=== PATIENT | male | born 1955 | race Caucasian/White ===

== ENCOUNTER 2021-10-06 06:25 | Day surgery (SDC) | payer OTHER, SELFPAY ==
[2021-09-25 13:32] VITALS: BMI 31.1
--- NOTE | 2021-10-02 12:25 | MHC.SHP ---
Pre-Procedural Eval Section A Date of Service: 10/02/21 The patient is an INPATIENT: No Changes since office visit: No Cold of Flu in the past 2 weeks, No New Medical Problems, No Changes in Medication and No Patient answered all questions The History & Physical has been completed within 30 days and I have reviewed it.: Yes Section B Chief Complaint: cataract left eye Allergies: Allergies Allergy/AdvReac Type Severity Reaction Status Date / Time penicillin G [Penicillin G] Allergy Mild ITCH/SOB Unverified 09/25/21 13:26 Plan Diagnosis/Plan: Unchanged I have reviewed the history and physical and performed a pertinent physical examination on my patient. No changes have occurred unless specified.
--- NOTE | 2021-10-02 13:35 | HO.ANESPROP2 ---
Documented by User: Vivian Del Cid NP 10/02/21 13:35 HPI - Anesthesia Eval Consult details Narrative: 66yo M for Left Cataract Extraction IOL Insertion PCP cleared No previous cataract on record [facility] Past Medical History Medical History GERD (gastroesophageal reflux disease) HTN (hypertension) Hyperlipidemia Smoker Surgical History Surgical History (Updated 09/25/21 @ 13:26 by Natalia Walsh RN) Hx of colonoscopy S/P surgical removal of pilonidal cyst [place] teeth extracted Social History Social History Are you a primary care advocate to a significant other at home: No Do you presently have visiting nurse or other home services: No Patient Tobacco Use Status: Current everyday Tobacco user Tobacco use type: Cigarette Cigarette Packs Per Day: 1 Cigarettes Per Day: 20.0 Years Smoked: 35 Smoked in Last 30 Days: Yes Patient Interested in Nicotine Replacement: No Have you been hit, kicked, punched, or otherwise hurt by someone within the past year? If so, by whom?: No Are you DNR?: No Advance Directives: No Advance Directives Information Provided: Yes Advance Directives on File: No Recently lost weight without trying: No Eating poorly because of decreased appetite: No Nutrition Risks: No Nutritional Risk Meds Allergies Allergy/AdvReac Type Severity Reaction Status Date / Time penicillin G [Penicillin G] Allergy Mild ITCH/SOB Verified 10/06/21 06:33 Home Medications Medication Instructions Recorded Confirmed Last Taken Type amlodipine 10 mg tablet 1 tab PO DAILY 09/25/21 09/25/21 Unknown History aspirin 81 mg tablet,delayed 81 mg PO DAILY 09/25/21 09/25/21 Unknown History release atorvastatin 20 mg tablet 1 tab PO DAILY 09/25/21 09/25/21 Unknown History hydrochlorothiazide 25 mg tablet 1 tab PO DAILY 09/25/21 09/25/21 Unknown History nicotine 14 mg/24 hr daily 1 patch TOPICAL DAILY 10/06/21 10/06/21 10/05/21 12:00 History transdermal patch Right Shoulder Exam Exam Date and Time: October 02, 2021 1335 Height,Weight and Vital Signs: Height 5 ft 9 in Weight 95.708 kg Assessment and Plan Assessment Anesthesia Assessment: Chart Reviewed Documented by User: Dionne Cordero MD 10/06/21 07:08 [facility] Past Medical History Medical History GERD (gastroesophageal reflux disease) HTN (hypertension) Hyperlipidemia Smoker Family History Family history of problems with anesthesia: No Surgical History Surgical History (Updated 09/25/21 @ 13:26 by Natalia Walsh RN) Hx of colonoscopy S/P surgical removal of pilonidal cyst [place] teeth extracted History of Problems with Anesthesia: No Social History Social History Are you a primary care advocate to a significant other at home: No Do you presently have visiting nurse or other home services: No Patient Tobacco Use Status: Current everyday Tobacco user Tobacco use type: Cigarette Cigarette Packs Per Day: 1 Cigarettes Per Day: 20.0 Years Smoked: 35 Smoked in Last 30 Days: Yes Patient Interested in Nicotine Replacement: No Have you been hit, kicked, punched, or otherwise hurt by someone within the past year? If so, by whom?: No Are you DNR?: No Advance Directives: No Advance Directives Information Provided: Yes Advance Directives on File: No Recently lost weight without trying: No Eating poorly because of decreased appetite: No Nutrition Risks: No Nutritional Risk Meds Allergies Allergy/AdvReac Type Severity Reaction Status Date / Time penicillin G [Penicillin G] Allergy Mild ITCH/SOB Verified 10/06/21 06:33 Home Medications Medication Instructions Recorded Confirmed Last Taken Type amlodipine 10 mg tablet 1 tab PO DAILY 09/25/21 09/25/21 Unknown History aspirin 81 mg tablet,delayed 81 mg PO DAILY 09/25/21 09/25/21 Unknown History release atorvastatin 20 mg tablet 1 tab PO DAILY 09/25/21 09/25/21 Unknown History hydrochlorothiazide 25 mg tablet 1 tab PO DAILY 09/25/21 09/25/21 Unknown History nicotine 14 mg/24 hr daily 1 patch TOPICAL DAILY 10/06/21 10/06/21 10/05/21 12:00 History transdermal patch Right Shoulder Exam Airway Mallampati Class: II TM Dist: >3cm Neck ROM: Full Heart: rrr Lungs: cta Assessment and Plan Assessment Anesthesia Assessment: Anesthesia Plan Discussed and Chart Reviewed Final Anesthetic Review Family History of Problems with Anesthesia: No History of Problems with Anesthesia: No NPO: Yes ASA Class: II Final Preanesthetic Review: No Changes in Pt Med Stat, Meds/Allgs Chart Reviewed and Consent Obtained/Reviewed Patient Risk: Intermediate Procedure Risk: Intermediate Anesthetic Plan Anesthetic Plan: MAC: Disposition: Standard PACU
[2021-10-06 06:36] VITALS: BP 132/82; PULSE 78; RESP 16; TEMP 36.9; O2SAT 98
[2021-10-06] MEDS: Tetracaine HCl/PF 0.5% Oph Sol 4 ML DROPS 1 DROP EYE-LEFT (06:49)
[2021-10-06] MEDS: Lactated Ringers 500 ML 50 ML IV (06:49)
[2021-10-06] MEDS: Tropicamide 1 % Ophth Sol 3 ML BTL 1 DROP EYE-LEFT ×3 (06:50→07:02)
[2021-10-06] MEDS: Phenylephrine HCL 2.5% Oph SoL 2 ML BOTTLE 1 DROP EYE-LEFT ×3 (06:54→07:06)
--- NOTE | 2021-10-06 07:55 | P.PCNO_ITS ---
Ophthalmology Procedure Procedure Date of Service: 10/06/21 Ophthalmology Viscoelastic: Healbob Duet Dual Pack Pro Ophthalmology Lenses: TECRANDELL [id number] (19) Procedure Notes: PREOPERATIVE DIAGNOSIS: Decreased visual acuity left eye secondary to cataract POSTOPERATIVE DIAGNOSIS: Same PROCEDURE: Left cataract extraction with intraocular lens insertion SURGEON: Edin Savage M.D. ANESTHESIA: Topical/MAC ESTIMATED BLOOD LOSS: None COMPLICATIONS: Vitreal Strand After obtaining informed consent, the patient was brought to the operation room suite and placed in the supine position. After adequate sedation per anesthesia, topical drops of Tetracaine were given to the left eye. The eye was then prepped and draped in the usual sterile fashion. The operating room microscope was then positioned over the operative eye and a lid speculum placed. A paracentesis was created. Viscoelastic was then instilled into the anterior chamber. A three plane incision was then created temporally, utilizing a 2.85 mm keratome. Capsulotomy forceps were then utilized to create a circular tear capsulotomy. Hydrodissection and hydrodelineation were carried out until adequate mobilization of the nucleus occurred. Phacoemulsification was then utilized to remove the dense central nucleus followed by removal of the cortical material utilizing the automated aspiration irrigation unit. A vitreal strand was noted coming throurg the Zonules which required an Anterior Vitrectomy. Viscoat elastic was instilled into the posterior capsular bag followed by placement of a posterior chamber intraocular lens without difficulty. The residual Viscoat elastic was then removed utilizing the autom ated IA machine. The wound was check and found to be watertight. The patient tolerated the procedure well and the lid speculum was removed. Intracameral injection of Vigamox 0.1 mL followed by a subtenon injection of Kenalog-40 0.2 mL were administered. The patient will be seen in the a.m.
[2021-10-06 08:28] VITALS: BP 149/90; PULSE 78; RESP 16; TEMP 36.7; O2SAT 97
== END 2021-10-06 08:40 | disposition home or self-care (01) ==
PROVIDERS: PCP Physician Assistant Medical; Visit Provider Ophthalmology
PROC: (CPT 66985; principal; 2021-10-06 07:50)
DX: H25.12 Age-related nuclear cataract, left eye (principal); H43.312 Vitreous membranes and strands, left eye; H54.7 Unspecified visual loss; Z83.511 Family history of glaucoma; H11.133 Conjunctival pigmentations, bilateral; H43.399 Other vitreous opacities, unspecified eye; I10 Essential (primary) hypertension; E78.00 Pure hypercholesterolemia, unspecified; F17.210 Nicotine dependence, cigarettes, uncomplicated; Z88.0 Allergy status to penicillin; Z79.82 Long term (current) use of aspirin; Z79.899 Other long term (current) drug therapy
CPT/HCPCS: 66984; 67005; J2250; J3010; J3300; V2632

== ENCOUNTER 2024-04-24 07:39 | Day surgery (SDC) | payer OTHER, SELFPAY ==
[2024-04-19 09:52] VITALS: BMI 31.2
[2024-04-19 10:41] VITALS: BMI 31.3
--- NOTE | 2024-04-20 13:48 | HO.ANESPROP2 ---
Documented by User: Vivian Del Cid NP 04/20/24 13:49 HPI - Anesthesia Eval Consult details Narrative: 68yo M for Right Cataract Extraction IOL Insertion Left eye 2021: Fent 50, Midaz 2 PMFSH Past Medical History Medical History PAC (premature atrial contraction) Palpitations Smoker Hyperlipidemia HTN (hypertension) GERD (gastroesophageal reflux disease) Family History Family history of problems with anesthesia: No Surgical History Surgical History Hx of left cataract extraction S/P surgical removal of pilonidal cyst [place] teeth extracted Hx of colonoscopy History of Problems with Anesthesia: No Social History Social History Are you a primary customer care consultant to a significant other at home: No Do you presently have visiting nurse or other home services: No Patient Tobacco Use Status: Former Tobacco user Tobacco use type: Cigarette Cigarette Packs Per Day: 1 Cigarettes Per Day: 20.0 Years Smoked: 37 Advance Directives Information Provided: Yes Advance Directives on File: No Meds Allergies Allergy/AdvReac Type Severity Reaction Status Date / Time penicillin G [Penicillin G] Allergy Mild ITCH/SOB Verified 04/24/24 09:40 Home Medications ?Medication ?Instructions ?Recorded ?Confirmed ?Last Taken ?Type amlodipine 10 mg tablet 1 tab PO DAILY 09/25/21 04/19/24 Unknown History aspirin 81 mg tablet,delayed 81 mg PO DAILY 09/25/21 04/19/24 Unknown History release atorvastatin 20 mg tablet 1 tab PO DAILY 09/25/21 04/19/24 Unknown History hydrochlorothiazide 25 mg tablet 1 tab PO DAILY 09/25/21 04/19/24 Unknown History cholecalciferol (vitamin D3) 25 25 mcg PO DAILY 04/19/24 04/19/24 Unknown History mcg (1,000 unit) capsule (Vitamin D3) Exam Height,Weight and Vital Signs: Height 5 ft 9 in Weight 96 kg Assessment and Plan Assessment Anesthesia Assessment: Chart Reviewed Final Anesthetic Review Family History of Problems with Anesthesia: No History of Problems with Anesthesia: No Documented by User: Itzel Benito MD 04/24/24 10:06 [facility] Past Medical History Medical History PAC (premature atrial contraction) Palpitations Smoker Hyperlipidemia HTN (hypertension) GERD (gastroesophageal reflux disease) Surgical History Surgical History Hx of left cataract extraction S/P surgical removal of pilonidal cyst [place] teeth extracted Hx of colonoscopy Social History Social History Are you a primary customer care consultant to a significant other at home: No Do you presently have visiting nurse or other home services: No Patient Tobacco Use Status: Former Tobacco user Tobacco use type: Cigarette Cigarette Packs Per Day: 1 Cigarettes Per Day: 20.0 Years Smoked: 37 Advance Directives Information Provided: Yes Advance Directives on File: No Meds Allergies Allergy/AdvReac Type Severity Reaction Status Date / Time penicillin G [Penicillin G] Allergy Mild ITCH/SOB Verified 04/24/24 09:40 Home Medications ?Medication ?Instructions ?Recorded ?Confirmed ?Last Taken ?Type amlodipine 10 mg tablet 1 tab PO DAILY 09/25/21 04/19/24 Unknown History aspirin 81 mg tablet,delayed 81 mg PO DAILY 09/25/21 04/19/24 Unknown History release atorvastatin 20 mg tablet 1 tab PO DAILY 09/25/21 04/19/24 Unknown History hydrochlorothiazide 25 mg tablet 1 tab PO DAILY 09/25/21 04/19/24 Unknown History cholecalciferol (vitamin D3) 25 25 mcg PO DAILY 04/19/24 04/19/24 Unknown History mcg (1,000 unit) capsule (Vitamin D3) Exam Airway Mallampati Class: III TM Dist: >3cm Neck ROM: Full Loose/Missing/Broken Teeth: No Heart: RRR Lungs: CTA Assessment and Plan Assessment Anesthesia Assessment: Anesthesia Plan Discussed Final Anesthetic Review NPO: Yes ASA Class: II Final Preanesthetic Review: Meds/Allgs Chart Reviewed, Consent Obtained/Reviewed and Anes Risks/Benef Reviewed Patient Risk: Low Procedure Risk: Low Anesthetic Plan Anesthetic Plan: MAC: Disposition: Standard PACU
[2024-04-24] MEDS: Tetracaine HCl/PF 0.5% Oph Sol 4 ML DROPS 1 DROP EYE-RIGHT (09:42)
[2024-04-24] MEDS: Cyclopentolate 1 % Ophth Sol 2 ML DRPBTL 1 DROP EYE-RIGHT ×3 (09:44→10:02)
[2024-04-24] MEDS: Ketorolac Tromethamine 0.5% Op 10 ML DROPS 1 DROP EYE-RIGHT ×3 (09:46→10:06)
[2024-04-24] MEDS: Phenylephrine HCL 2.5% Oph SoL 2 ML BOTTLE 1 DROP EYE-RIGHT ×3 (09:48→10:08)
[2024-04-24] MEDS: Tropicamide 1 % Ophth Sol 3 ML BTL 1 DROP EYE-RIGHT ×3 (09:50→10:04)
[2024-04-24] MEDS: Lactated Ringers 500 ML 50 ML IV (10:10)
[2024-04-24 10:12] VITALS: BP 147/81; PULSE 68; RESP 16; TEMP 36.3; O2SAT 98
[2024-04-24 10:15] VITALS: BMI 31.2
--- NOTE | 2024-04-24 10:55 | P.PCNO_ITS ---
Ophthalmology Procedure Procedure Date of Service: 04/24/24 Ophthalmology Viscoelastic: Healon Duet Dual Pack Pro Ophthalmology Lenses: IOL Acrysof MP - [id number] (19) Procedure Notes: PREOPERATIVE DIAGNOSIS: Decreased visual acuity right eye secondary to cataract POSTOPERATIVE DIAGNOSIS: Same PROCEDURE: Right cataract extraction with intraocular lens insertion SURGEON: Edin Savage M.D. ANESTHESIA: Topical/MAC ESTIMATED BLOOD LOSS: None COMPLICATIONS: None After obtaining informed consent, the patient was brought to the operating room suite and placed in the supine position. After adequate sedation per anesthesia, topical drops of Tetracaine were given to the right eye. The eye was then prepped and draped in the usual sterile fashion. The operating room microscope was then positioned over the operative eye and a lid speculum placed. A paracentesis was created. Viscoelastic was then instilled into the anterior chamber. A three plane incision was then created temporally, utilizing a 2.85 mm keratome. Capsulotomy forceps were then utilized to create a circular tear capsulotomy. Hydrodissection and hydrodelineation were carried out until adequate mobilization of the nucleus occurred. Phacoemulsification was then utilized to remove the dense central nucl eus followed by removal of the cortical material utilizing the automated aspiration irrigation unit. Viscoelastic was instilled into the posterior capsular bag followed by placement of a posterior chamber intraocular lens without difficulty. The residual Viscoelastic was then removed utilizing the automated IA machine. The wound was checked and found to be watertight. The patient tolerated the procedure well and the lid speculum was removed. Intracameral injection of Vigamox 0.1 mL followed by a subtenon injection of Kenalog-40 0.2 mL were administered. The patient will be seen in the a.m.
--- NOTE | 2024-04-24 10:55 | MHC.SHP ---
Pre-Procedural Eval Section A - 24 Hr Update-Section A only Date of Service: 04/24/24 The patient is an INPATIENT: No Changes since office visit: No Cold of Flu in the past 2 weeks, No New Medical Problems, No Changes in Medication and No Patient answered all questions The patient has been examined within 24 hours of the surgical procedure. The History & Physical has been completed within 30 days and I have reviewed it.: Yes Section B - Complete if H&P > 30 days Chief Complaint: Age-related nuclear cataract, right eye Allergies: Allergies Allergy/AdvReac Type Severity Reaction Status Date / Time penicillin G [Penicillin G] Allergy Mild ITCH/SOB Verified 04/24/24 09:40 Plan Diagnosis/Plan: Unchanged I have reviewed the history and physical and performed a pertinent physical examination on my patient. No changes have occurred unless specified. Time Spent With Patient Time: Total time managing care of this patient today ____ minutes.
[2024-04-24 11:26] VITALS: BP 144/91; PULSE 84; RESP 16; TEMP 36.1; O2SAT 97
== END 2024-04-24 11:44 | disposition home or self-care (01) ==
PROVIDERS: PCP Internal Medicine; Visit Provider Ophthalmology
PROC: (CPT 66985; principal; 2024-04-24 09:40)
DX: H25.11 Age-related nuclear cataract, right eye (principal); H54.7 Unspecified visual loss; Z83.511 Family history of glaucoma; Z96.1 Presence of intraocular lens; H18.413 Arcus senilis, bilateral; H11.153 Pinguecula, bilateral; H11.133 Conjunctival pigmentations, bilateral; H43.393 Other vitreous opacities, bilateral; I10 Essential (primary) hypertension; E78.00 Pure hypercholesterolemia, unspecified; K21.9 Gastro-esophageal reflux disease without esophagitis; Z79.82 Long term (current) use of aspirin; Z79.899 Other long term (current) drug therapy; Z88.0 Allergy status to penicillin; F17.210 Nicotine dependence, cigarettes, uncomplicated
CPT/HCPCS: 66984; J2250; J3010; J3301; V2630

== ENCOUNTER 2025-05-25 08:55 | Day surgery (SDC) | payer OTHER, SELFPAY ==
--- OUTSIDE RECORDS SUMMARY | 2025-04-12 12:25 | XMS_ITS | Clinical Summary ---
Author Organization [facility] [address] [facility] Address [address] [place] [address] Phone Care Team Providers Care Information Services Vice President Name Role Phone Abigail Lebron MD Primary Care Provider [phone] Allergies Active Allergy Reactions Criticality Noted Date Comments Penicillin G Potassium 06/24/2005 Medications aspirin 81 mg EC tablet Take 1 tablet (81 mg total) by mouth 1 (one) time each day. Active cholecalciferol (VITAMIN D-3) 25 mcg (1,000 unit) tablet Take 1 tablet (1,000 Units total) by mouth 1 (one) time each day. Active DIPHENHYDRAMINE HCL PO Take 1 tablet by mouth if needed. Active hydroCHLOROthia zide (HYDRODIURIL) 25 mg tablet TAKE ONE TABLET BY MOUTH EVERY DAY 90 tablet 1 5 Active amLODIPine (NORVASC) 10 mg tablet Take 1 tablet (10 mg total) by mouth 1 (one) time each day. 30 tablet 5 5 Active atorvastatin (LIPITOR) 20 mg tablet TAKE ONE TABLET BY MOUTH EVERY DAY 90 tablet 1 5 Active atorvastatin (LIPITOR) 20 mg tablet Take 1 tablet (20 mg total) by mouth 1 (one) time each day. 30 tablet 2 5 03/20/20 25 Discontinued Active Problems Problem Noted Date Diagnosed Date Premature atrial contractions 01/06/2023 Run of ventricular premature complexes 3 Palpitation 12/31/2022 Hyperkalemia 05/25/2018 Overweight 05/03/2012 Tobacco use disorder 09/30/2005 Mixed hyperlipidemia 06/30/2005 Essential hypertension, benign 05/29/2005 Encounters Date Type Department Care Team Description 03/02/2025 11:12 AM EDT - 03/02/2025 11:59 PM EDT Hospital Encounter [facility] CT Scan [address] [place] [address] Encounter for screening for lung cancer; Cigarette smoker Discharge Disposition: Home or Self Care 02/15/2025 Telephone Lung Screening Program - [place] [address] [facility] [address] [place] [address] Mary Madsen MA from Last 3 Months Immunizations Name Administration Dates Next Due Influenza Quadravalent, MDCK , 0.5ml, preservative free (Flucelvax) 6mo and older 07/17/2021,06/22/2019,05/25/2017 Influenza Quadravalent, MDCK , 0.5ml, with preservative (Flucelvax) 6mo and older 04/25/2018 Influenza trivalent, 0.5mL ( Fluad) 65yo and older 04/18/2024,04/28/2023,08/16/2022 Influenza trivalent, 0.5mL, preservative free (Fluarix; FluLaval; Fluzone) ages 6mo and older (Afluria) 3 years and older 05/02/2020 Influenza trivalent, with pr eservative (Fluzone; Afluria) 6mo and older 05/17/2013,07/14/2012 Influenza, Unspecified 06/21/2019,06/12/2015 Td Tetanus diptheria (Tdvax) 7yo and older 06/30 Tdap Tetanus diptheria acell ular pertussis (Boostrix; Adacel) 7yo and older 11/28/2012 Surgical History Surgery Date Site/Laterality Comments CYST REMOVAL PROCEDURE: IA EXCISION PILONIDAL CYST/SINUS SIMPLE WISDOM TOOTH EXTRACTION PROCEDURE: HISTORICAL WISDOM TEETH EXTRACTION OTHER SURGICAL HISTORY PROCEDURE: ---- OTHER ----; COMMENT: rectal polyp removal COLONOSCOPY PROCEDURE: HISTORICAL COLONOSCOPY; COMMENT: 2013 dr campbell F/U due 2018 COLONOSCOPY 2018 PROCEDURE: HISTORICAL COLONOSCOPY; COMMENT: dr campbell next due 2023 Medical History Medical History Date Comments Mixed hyperlipidemia DX:Mixed hy perlipidemia Essential hypertension, benign 05/29/05 D X:Essential hypertension, benign Colon polyp 08/12/2010 DX:Colon polyp; COMMENT: next [id number] Family history of colon canc er in father 05/10/2019 DX:Family history of colon c ancer in father GERD (gastroesophageal reflux disease) 08/27/2008 DX:GERD (gastroesophageal reflux disease) Family History Medical History Relation Name Comments Cataracts Aunt Strabismus Brother 1 Cataracts Father Colon cancer Father Glaucoma Father Macular degeneration Father Cataracts Maternal Grandmother Blindness Other Coronary artery disease Neg Hx Diabetes Neg Hx Hypertension Neg Hx Relation Name Status Comments Aunt Brother 1 Alive Brother 2 Alive Father (Age 66) colon canc er Maternal Grandmother Mother polyps met canc er ? lung Other Sister Alive Social History Tobacco Use Types Packs/Day Years Used Date Smoking Tobacco: Former Cigarettes Q uit: 10/08/2023 Smokeless Tobacco: Current Tobacco Cessation:Ready to Q uit: Not Asked; Counseling Given: Not Answered Alcohol Use Standard Drinks/Week Comments Yes 0 (1 standard drink = 0.6 oz pur e alcohol) Sex and Gender Information Value Date Recorded Sex Assigned at Not on file Legal Sex Male 11:45 PM EST Gender Identity Not on file Sexual Orientation Not on file Obstetrics History Last Filed Vital Signs Vital Sign Reading Time Taken Comments Blood Pressure 136/76 12/19/2024 4:12 PM EDT Pulse 80 12/19/2024 4:12 PM EDT Temperature 36.6 C (97.9 F) 12/19/2024 4:12 PM EDT Respiratory Rate 18 12/19/2024 4:12 PM EDT Oxygen Saturation 96% 12/15/2024 10:29 AM EDT Inhaled Oxygen Concentration - - Weight 98 kg (216 lb) 12/19/2024 4:12 PM EDT Height 175.3 cm (5' 9 ) 12/19/2024 4:12 PM EDT Body Mass Index 31.9 12/19/2024 4:12 PM EDT Plan of Treatment Upcoming Encounters Date Type Department Care Team (Late st Contact Info) Description 04/19/2025 9:00 AM EDT Office Visit Adult Medicine [facility] [place] [address] [place] [address] Abigail Lebron MD [address] [place] [address] Health Maintenance Due Date Last Done Comments Pneumococcal Vaccine: 50+ Years (1 of 1 - PCV) 2007 Zoster Vaccines (1 of 2) 2007 Falls Risk Assessment 07/18/2022 Social Influencers of Health Screening 07/18/2022 DTaP,Tdap,and Td Vaccines (3 - Td or Tdap) 11/28/2022 11/28/2012, 06/30/2005 Colorectal Cancer Screening: Colonoscopy 07/24/2024 07/24/2019 Depression Screening 08/09/2024 COVID-19 Vaccine ( season) 2025 03/09/2022, 07/04/2021, 12/06/2020, Additional history exists Influenza Vaccine (#1) 2025 , 04/28/2023, 08/16/2022, Additional history exists Hypertension/CHF/CAD Annual BMP Blood Test 12/19/2025 12/19/2024, 04/14/2024, 04/14/2024 Lung Cancer Screening (Low Dose CT) 03/02/2026 03/02/2025, 03/06/2024, 02/26/2023, Additional history exists Cholesterol Screening (Lipid Panel) 04/14/2029 04/14/2024, 04/14/2024 RSV Immunization Adult Patients (1 - 1-dose 75+ series) 2032 Abdominal Aortic Aneurysm (AAA) Screen Completed 05/22/2005 Hepatitis C Screening Completed 05/22/2013 HIB Vaccines Aged Out No longer eligi ble based on patient's age to complete this topic HPV Vaccines Aged Out No longer eligi ble based on patient's age to complete this topic Hepatitis A Vaccines Aged Out No long er eligible based on patient's age to complete this topic Hepatitis B Vaccines Aged Out No long er eligible based on patient's age to complete this topic IPV Vaccines Aged Out No longer eligi ble based on patient's age to complete this topic MMR Vaccines Aged Out No longer eligi ble based on patient's age to complete this topic Meningococcal ACWY Vaccine Aged Out N o longer eligible based on patient's age to complete this topic Meningococcal B Vaccine Aged Out No l onger eligible based on patient's age to complete this topic RSV Immunization Patients Under 20 months Aged Out No longer eligible based on patient's age to complete this topic Varicella Vaccines Aged Out No longer eligible based on patient's age to complete this topic Procedures Procedure Name Priority Date/Time Associated Diagnosis Comments CT LUNG SCREENING Routine 03/02/2025 11: 32 AM EDT Encounter for screening for lung cancer Cigarette smoker COMPREHENSIVE METABOLIC PANEL Routine 12/19/2024 4:40 PM EDT Essential hypertension, benign Rash LIPID PANEL Routine 04/14/2024 COLONOSCOPY Routine 07/24/2019 HEPATITIS C SCREENING Routine 05/22/2013 ABDOMINAL AORTIC ANEURYSM SCRREN Routine 05/22/2005 from Last 3 Months or Most Recently Relevant to Health Maintenance Results * CT Lung Screening (03/02/2025 11:32 AM EDT) Anatomical Region Laterality Modality Chest Computed Tomogra phy 03/06/2025 5:15 AM EDT Impressions 03/06/2025 5:18 AM EDT No suspicious pulmonary nodules Lung RADS 2: Benign Appearance or Behavior - Continue annual screening with LDCT in 12 months. -------- FINAL REPORT -------- Dictated By: Luna Parekh Dictated Date: 03/06/2025 05:15 ET Assigned Physician: Luna Parekh Reviewed and Electronically Signed By: Luna Parekh Signed Date: 03/06/2025 05:18 ET Workstation ID: [id number] Transcribed By: Self Edit Transcribed Date: 03/06/2025 05:15 ET Narrative 03/06/2025 5:18 AM EDT Indication: Greater than 20 total pack-year smoking history, asymptomatic current smoker Technique: Low-dose CT scan of the chest obtained as a lung cancer screening study. Multiplanar reformatted images were obtained. Dose reduction technique: ASIR (Adaptive statistical iterative reconstruction) and/or AEC (automated exposure control) DLP: 167.67 mGy-cm COMPARISON: February 2024. FINDINGS: Lack of intravenous contrast limits evaluation of the kevin, vascular structures and visualized abdominal viscera. Lungs/airways: Trachea and central airways are patent. Mild emphysematous changes. Few occasional scattered sub-5 mm pulmonary nodules, similar to prior. Base of the neck, mediastinum, heart, chest wall, vessels: The assessment of hilar lymphadenopathy is difficult without the use of IV contrast. No enlarged mediastinal lymph nodes. Thoracic aortic and coronary artery calcifications. Mild bilateral gynecomastia. Upper abdomen: This study was performed without contrast and with lower than standard dose. These factors reduce the sensitivity for detection of small lesions in the upper abdomen. Right adrenal nodule, similar to prior. Hepatic steatosis. Bones/soft tissues: Degenerative changes Procedure Note Luna Parekh MD - 03/06/2025 Indication: Greater than 20 total pack-year smoking history, asymptomaticcurrent smoker Technique: Low-dose CT scan of the chest obtained as a lung cancerscreening study. Multiplanar reformatted images were obtained. Dosereduction technique: ASIR (Adaptive statistical iterative reconstruction)and/or AEC (automated exposure control) DLP: 167.67 mGy-cm COMPARISON: February 2024. FINDINGS: Lack of intravenous contrast limits evaluation of the kevin,vascular structures and visualized abdominal viscera. Lungs/airways: Trachea and central airways are patent. Mild emphysematouschanges. Few occasional scattered sub-5 mm pulmonary nodules, similar to prior. Base of the neck, mediastinum, heart, chest wall, vessels: The assessmentof hilar lymphadenopathy is difficult without the use of IV contrast. Noenlarged mediastinal lymph nodes. Thoracic aortic and coronary arterycalcifications. Mild bilateral gynecomastia. Upper abdomen: This study was performed without contrast and with lowerthan standard dose. These factors reduce the sensitivity for detection ofsmall lesions in the upper abdomen. Right adrenal nodule, similar toprior. Hepatic steatosis. Bones/soft tissues: Degenerative changes IMPRESSION: No suspicious pulmonary nodules Lung RADS 2: Benign Appearance or Behavior - Continue annual screeningwith LDCT in 12 months. -------- FINAL REPORT -------- Dictated By: Luna Parekh Dictated Date: 03/06/2025 05:15 ET Assigned Physician: Luna Parekh Reviewed and Electronically Signed By: Luna Parekh Signed Date: 03/06/2025 05:18 ET Workstation ID: [id number] Transcribed By: Self Edit Transcribed Date: 03/06/2025 05:15 ET Rufino Elmore MD IMG CT PROCEDURES Final Result * (ABNORMAL) Comprehensive metabolic panel (12/19/2024 4:40 PM EDT) Sodium 133 133 - 145 mmol/L LAB CHEMISTRY METHOD 12/19/2024 7:12 PM [facility] Potassium 4.3 3.5 - 5.5 mmol/L LAB CHEMISTRY METHOD 12/19/2024 7:12 PM [facility] Chloride 98 96 - 110 mmol/L LAB CHEMISTRY METHOD 12/19/2024 7:12 PM [facility] CO2 26 21 - 32 mmol/L LAB CHEMISTRY METHOD 12/19/2024 7:12 PM [facility] Anion Gap 9 3 - 11 LAB CHEMISTRY METHOD 12/19/2024 7:12 PM [facility] Glucose 102(H) 70 - 100 mg/dL LAB CHEMISTRY METHOD 12/19/2024 7:12 PM [facility] BUN 14 5 - 25 mg/dL LAB CHEMISTRY METHOD 12/19/2024 7:12 PM [facility] Creatinine 1.07 0.70 - 1.30 mg/dL LAB CHEMISTRY METHOD 12/19/2024 7:12 PM [facility] eGFR 76 >=60 mL/min/1. 73m2 LAB CHEMISTRY METHOD 12/19/2024 7:12 PM [facility] Comment:Calculation based on the Chronic Kidney Disease Epidemiology Collaboration (CKD-EPI) equation refit without adjustment for race. BUN/Creatinine Ratio 13.1 LAB CHEMISTRY METHOD 12/19/2024 7:12 PM [facility] Calcium 9.7 8.5 - 10.5 mg/dL LAB CHEMISTRY METHOD 12/19/2024 7:12 PM EDT [facility] AST (SGOT) 26 10 - 42 unit/L LAB CHEMISTRY METHOD 12/19/2024 7:12 PM EDT [facility] ALT (SGPT) 47 10 - 60 unit/L LAB CHEMISTRY METHOD 12/19/2024 7:12 PM EDT [facility] Alkaline Phosphatase 97 42 - 121 unit/L LAB CHEMISTRY METHOD 12/19/2024 7:12 PM EDT [facility] Total Protein 8.0 6.0 - 8.0 g/dL LAB CHEMISTRY METHOD 12/19/2024 7:12 PM EDT [facility] Albumin 4.3 3.2 - 5.0 g/dL LAB CHEMISTRY METHOD 12/19/2024 7:12 PM EDT [facility] Total Bilirubin 0.6 0.0 - 1.4 mg/dL LAB CHEMISTRY METHOD 12/19/2024 7:12 PM EDT [facility] Blood Venous blood specimen / Unknown Venipuncture / Unknown 12/19/2024 4:40 PM EDT 12/19/2024 4:40 PM EDT [facility] TELLES LAB BLOOD ORDERABLES Fin al Result [facility] [address] [place] [address], [place] [phone] * Lipid panel (04/14/2024) LDL/HDL Ratio 3 0 - 4 Triglycerides 79 0 - 150 mg/dL Cholesterol 164 0 - 200 mg/dL HDL 60 >=40 mg/dL LDL Cholesterol 89 0 - 100 mg/dL Blood Venous blood specimen / Unknown [facility] Provider LAB BLOOD ORDERABLES Milly l Result * Colonoscopy (07/24/2019) Colonoscopy no interpretation , abstracted Anatomical Region Laterality Modality Other Historical Provider HEALTH MAINTENANCE Final Result * Hepatitis C Screening (05/22/2013) Hepatitis C Screening abstracted [facility] Provider HEALTH MAINTENANCE Final Result * Abdominal Aortic Aneurysm Screen (05/22/2005) Abdominal Aortic Aneurysm (AAA) Screening abstracted Anatomical Region Laterality Modality Other Historical Provider HEALTH MAINTENANCE Final Result from Last 3 Months or Most Recently Relevant to Health Maintenance Insurance MEDICARE [facility] Care Teams Information Services Vice President Relationship Specialty Start Date End Date Abigail Lebron MD [address] [place] [address] PCP - General Internal Medicine 08/28/21
--- OUTSIDE RECORDS SUMMARY | 2025-04-12 12:26 | XMS_ITS ---
Author Name Renetta Villalta Address Unknown Organization [facility] Team Providers Care Supervisor Doping Name Role Phone Unavailable Primary Care Physician Unavailab le History Of Present Illness 1. This is a 69 year old male who is an established patient who is being seen for a chief complaintof a skin lesion.Location: left elbowQuality: enlarging, red, and rough and raisedSeverity: mildDuration: weeksModifying Factors: nothing makes it better or worseTreatment Status: has not been treatedReason for Visit: evaluation and management 2. This is a 69 year old male who is following up for dermatitis unspecified on the chest, left forearm, right forearm, right pretibial region, and left pretibial region. He was seen on February 01, 2025, at which time The following treatment regimen was given: Begin the following treatment(s): Get Sunexposure in moderation. Continue the following treatment(s): Zyrtec 10mg QHSClobetasol 0.05 % topical cream: Apply AM and PM red scaly patches arms abdomen ( call when refills needed)Wash with mild soap and cool or lukewarm water when bathingUse perfume and dye free detergentsMoisturizing cream throughout the day (keep refrigerated). % Body Surface Covered in Rash: 3.0. Itch Numeric Rating Scale ( NRS): 1.0.Since then, the patient states the dermatitis unspecified is unchanged.The patient presents for further evaluation and management.The patient followed the treatment plan as directed.Interval History: Pt reports no improvement. Allergies, Adverse Reactions, Alerts Substance RxNorm Reaction(s) Severity Status Start Da te Penicillins unspecified active Medications Medication Generic Name RxNorm Strength Strength Unit Route Dose Dose Form Frequency Date Started Date Ended Status Indication Sig clobetasol clobetas ol 744317 0.05 % Topica l apply thin layer to skin cream as needed 12/22/19 25 active Appl y AM and PM red scal y patc hes arms and legs for 2 week s amlodipine 614318 10 mg Oral Take 1 table t daily active atorvastati n 311839 20 mg Oral Take 1 table t daily active hydrochloro thiazide 899746 25 mg Oral Take 1 table t daily active active Problems Problem Code Type Status Date of Diagnosis Date of Resolution 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) 51524069(S NOMED) Diagnosis active 04/10/2025 Inflammatory dermatosis (disorder) 706137729( SNOMED) Diagnosis active 04/10/2025 Inflammatory dermatosis (disorder) 450675792( SNOMED) Diagnosis active 02/01/2025 Inflammatory dermatosis (disorder) 672482316( SNOMED) Diagnosis active 01/04/2025 Inflammatory dermatosis (disorder) 422668265( SNOMED) Diagnosis active 12/21/2024 Anxiety disorder (disorder) 708109102( SNOMED) Problem active History of hypertension (situation) 066256524( SNOMED) Problem active Hypercholesterolemia (disorder) 48810270(S NOMED) Problem active Psoriasis (disorder) 9204854(SN OMED) Problem active Atopic dermatitis (disorder) 64291617(S NOMED) Problem active Results No data Encounters Service provided at [place], [address] [place] [address], [address], [place], [place] [id number]. Office phone number is [phone]. Office fax number is [phone]. 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)Dermatitis Unspecified (L30.9)[facility] () [place] 04/10/2025 15:1 5:00 [facility] [id number] Reason For Referral I saw Tung Jigna in the office on April 10, 2025.Below is a summary of our visit:Neoplasm of Uncertain Behavior: Dome shaped papule located on the left lateral distal upper arm.Plan: Photo-Documentation, Biopsy by Shave Method, and Additional Notes.Dermatitis Unspecified: red scaly oval patches over abdomen and legs and back today are clear distributed on the chest, left forearm, right for earm, right pretibial region, and left pretibial region.Plan: Counseling, Treatment Regimen, Medication Counseling, and Additional Notes.MIPS: .Plan: MIPS Quality.My impression and plan was the followin.Neoplasm of Uncertain BehaviorPhoto-Documentation:.Biopsy by Shave Method: left lateral distal upper arm.Additional Notes2.Dermatitis UnspecifiedCounselingTreatment Regimen: Continue Regimen - Zyrtec 10mg QHSClobetasol 0.05 % topical cream: Apply AM and PM red scaly patches arms abdomen for 2weeks, d/c 1 week- repeat cycle as neededWash with mild soap and cool or lukewarm water when bathingUse perfume and dye free detergentsMoisturizing cream throughout the day (keep refrigerated)Get Sunexposure in moderation;.Medication CounselingAdditional Notes3.[facility] Quality Procedures Procedure Date Documentation of current medications (pr ocedure) 04/10/2025 12:00 am [place] Shave biopsy (procedure) 04/10/2025 12:0 0 am [place] Smoking cessation education (procedure) 04/10/2025 12:00 am [place] Documentation of current medications (pr ocedure) 02/01/2025 12:00 am [place] Documentation of current medications (pr ocedure) 01/04/2025 12:00 am [place] Documentation of past medical history (p rocedure) Review Of Systems Provider reviewed on Apr 10, 2025.A focused review of systems was performed including Integumentary.No Problems With Healing And No Problems With Scarring (hypertrophic Or Keloid). Assessment 1.Neoplasm of Uncertain BehaviorPhoto-Documentation:.Biopsy by Shave Method: left lateral distal upper arm.Additional Notes2.Dermatitis UnspecifiedCounselingTreatment Regimen: Continue Regimen - Zyrtec 10mg QHSClobetasol 0.05 % topical cream: Apply AM and PM red scaly patches arms abdomen for 2 weeks, d/c 1 week- repeat cycle as neededWash with mild soap and cool or lukewarm water when bathingUseperfume and dye free detergentsMoisturizing cream throughout the day (keep refrigerated)Get Sun expo sure in moderation;.Medication CounselingAdditional Notes3.[facility] Quality Plan of Care Future visit for 07/03/2025 - Follow up in 3 months for: Focused Visit - 15 minutes. Other Instructions: recheck dermatitis in 2-3 mos. Other Instructions: recheck dermatitis in 2-3 mos. Code Detail Instructions [id number] clobetasol 0.05 % topical cream Apply AM and PM red scaly patches arms and legs for 2 weeks Instructions * I counseled the patient regarding the following:Expectations: The patient understands that there isnot a definitive diagnosis at this time. Further testing or empiric therapy may be necessary to diagnose and improve the condition.Contact office if: The patient develops a fever, or rash dramatically worsens despite treatment. * Continue the following treatment(s): Zyrtec 10mg QHSClobetasol 0.05 % topical cream: Apply AM and PM red scaly patches arms abdomen for 2 weeks, d/c 1 week- repeat cycle as neededWash with mild soap and cool or lukewarm water when bathingUse perfume and dye free detergentsMoisturizing cream throughout the day (keep refrigerated)Get Sun exposure in moderation. * Topical Steroids Counseling: I discussed with the patient that prolonged use of topical steroids can result in the increased appearance of superficial blood vessels (telangiectasias), lightening (hypopigmentation) and thinning of the skin (atrophy). Patient understands to avoid using high potency steroids in skin folds, the groin or the face. The patient verbalized understanding of the proper useand possible adverse effects of topical steroids. All of the patient's questions and concerns were addressed. Social History Code Activity Start Date End Date [id number] ([facility]) Current every day smoker Sex male Sexual orientation Unspecified Gender identity Unspecified Vital Signs No data
--- OUTSIDE RECORDS SUMMARY | 2025-04-12 12:26 | XMS_ITS | Clinical Summary ---
Author Organization [facility] Address [address] [place] [phone] Phone Care Team Providers Care Publicity Director Name Role Phone Arnav Bermudez MD Primary Care Provider U navailable Allergies Active Allergy Reactions Criticality Noted Date Comments Penicillins 08/15/2019 Medications aspirin 81 MG EC tablet Take 81 mg by mouth daily. Active pravastatin (PRAVACHOL) 40 MG tablet Take 40 mg by mouth daily. Active hydroCHLOROthiaz anish (HYDRODIURIL) 25 MG tablet Take 25 mg by mouth daily. Active amLODIPine (NORVASC) 5 MG tablet Take 5 mg by mouth daily. Active Social History Tobacco Use Types Packs/Day Years Used Date Smoking Tobacco: Every Day Smokeless Tobacco: Never Alcohol Use Standard Drinks/Week Comments Yes 0 (1 standard drink = 0.6 oz pur e alcohol) Education Answer Date Recorded Are you interested in more education? Not on lissette e 12/04/2022 Are you concerned about learning? Not on file 12/04/2022 No 12/04/2022 No 12/04/2022 Digital Access Answer Date Recorded No 01/02/2023 No 01/02/2023 No 01/02/2023 Reliable internet access at home? Not on file 01/02/2023 Device with a working camera? Not on file Sex and Gender Information Value Date Recorded Sex Assigned at Male 08/15/2019 10:41 AM EST Legal Sex Male 10:24 AM EST Gender Identity Male 08/15/2019 10:41 AM EST Sexual Orientation Not on file Last Filed Vital Signs Vital Sign Reading Time Taken Comments Blood Pressure 113/59 08/15/2019 11:32 AM EST Pulse 97 08/15/2019 11:32 AM EST Temperature 36.9 C (98.4 F) 08/15/2019 11:32 AM EST Respiratory Rate 19 08/15/2019 11:32 AM EST Oxygen Saturation 99% 08/15/2019 11:32 AM EST Inhaled Oxygen Concentration - - Weight 99.8 kg (220 lb) 08/15/2019 10:38 AM EST Height 175.3 cm (5' 9 ) 08/15/2019 10:38 AM EST Body Mass Index 32.49 08/15/2019 10:38 AM EST Plan of Treatment Health Maintenance Due Date Last Done Comments LIPID PANEL 1957 POTASSIUM LEVEL 1957 DEPRESSION SCREENING 1969 SMOKING Hx and SMOKELESS TOBACCO SCREENING 1970 HEPATITIS C SCREENING 1975 PNEUMOCOCCAL VACCINES (50+ years) (1 of 2 - PCV) 1976 COLOGUARD 2002 COLONOSCOPY 2002 COLORECTAL CANCER SCREENING 2002 FIT TEST 2002 FOBT 2002 SIGMOIDOSCOPY 2002 VIRTUAL COLONOSCOPY 2002 ZOSTER VACCINES (1 of 2) 2007 ABDOMINAL AORTIC ANEURYSM (AAA) SCREENING 2022 Adult Td,Tdap Booster 11/28/2022 11/28/2012, 005 INFLUENZA VACCINE (#1) 2025 , 06/22/2019, 04/25/2018, Additional history exists COVID-19 VACCINE ( season) 2025 12/06/2020, 11/15/2020 RSV VACCINE (1 - 1-dose 75+ series) 2032 HEPATITIS A VACCINES Aged Out No long er eligible based on patient's age to complete this topic HIB VACCINES Aged Out No longer eligi ble based on patient's age to complete this topic MENINGOCOCCAL VACCINES (ACWY) Aged Out No longer eligible based on patient's age to complete this topic MENINGOCOCCAL VACCINES (B) Aged Out N o longer eligible based on patient's age to complete this topic Medical Devices Not on file Insurance HMO [address] [place], [place] [id number] Care Teams Publicity Director Relationship Specialty Start Date End Date Arnav Bermudez MD PCP - General Internal Medicine 08/15/19 Additional Source Comments The information contained in this document represents components of the legal health record. It is not the complete legal health record.[facility]
--- OUTSIDE RECORDS SUMMARY | 2025-04-12 12:26 | XMS_ITS | Patient Health Record ---
Author Organization [facility] Address [address] [place] [address] Care Team Providers Care Delivery Aide Name Role Phone Arnav Bermudez Primary Care Provider Osmany Harden [phone] Allergies Allergen (clinical drug ingredient) Drug/Non Drug Allergy documented on EMR Reaction Allergy Type Onset Date Status Penicillin Unknown Drug Allergy Active Reason For Referral No Information Medications Medication SIG (Take, Route, Frequency, Duration) Notes Start Date End Date Status Aspir-Low 81 MG 1 tablet Orally Once a day for 30 day(s) Active amLODIPine Besylate 10 MG 1 tablet Orall y Once a day for 30 day(s) Active hydroCHLOROthiazide 25mg 1 tablet in the morning Orally Once a day Active Atorvastatin Calcium 20 MG 1 tablet Oral ly Once a day Active ZyrTEC 10 MG 1 tablet Orally Once a day Active Immunizations Vaccine Route Administration Date Status Comme nts Influenza Unknown 05/08/2018 Administered Influenza Unknown 05/30/2024 Administered Social History Tobacco Use: Social History Observation Description Date Details (start date - stop date) Current Smoker NA - NA Tobacco Use/Smoking Question Answer Notes Patient is a current smoker How often do you smoke cigarettes? every day How many cigarettes a day do you smoke? 11-20 How soon after you wake up do you smoke your fir st cigarette? 6-30 minutes Are you interested in quitting? Not ready to michael t AUDIT-C (Standard) Question Answer Notes Did you have a drink contain ing alcohol in the past year? Yes How often did you have a dri nk containing alcohol in the past year? Daily or almost daily (4 points) How many drinks did you have on a typical day when you were drinking in the past year? 3 or 4 drinks (1 point) How often did you have six o r more drinks on one occasion in the past year? Never (0 point) Points 5 Interpretation Positive Section Notes: Smoker; 4-5 beers QD Smoker 1 ppd; 4-5 beers QD 2 cigs QD; 2-3 beers QD Problems Problem Type SNOMED Code ICD Code Onset Dates Problem Status W/U Status Risk Notes Problem 522786820 Encounter for screening for malignant neoplasm of colon (Z12.11) Active confirmed Problem 676993740 History of adenomatous polyp of colon (Z86.010) Active confirmed Problem [id number] Preprocedural examination (Z01.818) Active confirmed Problem [id number] Family history o f colon cancer (Z80.0) Active confirmed Vital Signs Temperature 95.3 degrees Fahrenheit 02/07/2025 Blood pressure diastolic 01 mm Hg 02/07/2025 Height 69.5 in 02/07/2025 Blood pressure systolic 001 mm Hg 02/07/2025 Weight 212.8 lbs 02/07/2025 BMI 30.97 kg/m2 02/07/2025 Procedures Procedure Date Ordered Date Performed Result Body Sit e COLONOSCOPY 02/07/2025 N/A Encounters Encounter Location Date Provider Diagnosis [facility] [address] [place] [address] 02/07/2025 Osmany Yarbrough History of adenomato us polyp of colon Z86.010 ; Preprocedural examination Z01.818 ; Family history of colon cancer Z80.0 and Encounter for screening for malignant neoplasm of colon Z12.11 Assessments Encounter Date Diagnosis (ICD Code) Assessment Notes Treatment Notes Treatment Clinical Notes Section Notes 02/07/2025 History of adenomatous polyp of colon (ICD-10 - Z86.010) Overall, Pawel appears well. He is not having any new or worrisome GI complaints. Given his personal history of tubular adenomas of the colon, family history of colon cancer in his father, and his last colonoscopy being over 5 years ago, I did recommend a follow-up colonoscopy for further screening purposes. We did review the rationale for that in regard to colon cancer prevention. Full consent has been obtained from him for this, including risks of bleeding and perforation. The procedure will be done with monitored anesthesia care. He was given the below instructions regarding adjustment of his medications for the procedure. Pawel was comfortable with this plan. Thank you again for allowing me to participate in Pawel's care. I shall continue to keep you advised of his progress. 02/07/2025 Preprocedural examination (ICD-10 - Z01.818) Overall, Pawle appears well. He is not having any new or worrisome GI complaints. Given his personal history of tubular adenomas of the colon, family history of colon cancer in his father, and his last colonoscopy being over 5 years ago, I did recommend a follow-up colonoscopy for further screening purposes. We did review the rationale for that in regard to colon cancer prevention. Full consent has been obtained from him for this, including risks of bleeding and perforation. The procedure will be done with monitored anesthesia care. He was given the below instructions regarding adjustment of his medications for the procedure. Pawel was comfortable with this plan. Thank you again for allowing me to participate in Pawel's care. I shall continue to keep you advised of his progress. 02/07/2025 Family history of colon cancer (ICD-10 - Z80.0) Overall, Pawel appears well. He is not having any new or worrisome GI complaints. Given his personal history of tubular adenomas of the colon, family history of colon cancer in his father, and his last colonoscopy being over 5 years ago, I did recommend a follow-up colonoscopy for further screening purposes. We did review the rationale for that in regard to colon cancer prevention. Full consent has been obtained from him for this, including risks of bleeding and perforation. The procedure will be done with monitored anesthesia care. He was given the below instructions regarding adjustment of his medications for the procedure. Pawel was comfortable with this plan. Thank you again for allowing me to participate in Pawel's care. I shall continue to keep you advised of his progress. 02/07/2025 Encounter for screening for malignant neoplasm of colon (ICD-10 - Z12.11) Overall, Pawel appears well. He is not having any new or worrisome GI complaints. Given his personal history of tubular adenomas of the colon, family history of colon cancer in his father, and his last colonoscopy being over 5 years ago, I did recommend a follow-up colonoscopy for further screening purposes. We did review the rationale for that in regard to colon cancer prevention. Full consent has been obtained from him for this, including risks of bleeding and perforation. The procedure will be done with monitored anesthesia care. He was given the below instructions regarding adjustment of his medications for the procedure. Pawel was comfortable with this plan. Thank you again for allowing me to participate in Pawel's care. I shall continue to keep you advised of his progress. Plan Of Treatment Pending Test Test Name Order Date COLONOSCOPY 02/07/2025 Future Test Test Name Order Date COLONOSCOPY 08/22/2013 COLONOSCOPY 04/26/2019 Next Appt Details Provider Name:Osmany Silverman Yarbrough , 05/25/2025 10:10:00 AM, [address] [place] [address], [phone], Insurance Providers Payer Name Payer Address Payer Phone Subscriber Number Group Number Insured Name Patient Relationship to Insured Coverage Start Date Coverage End Date [facility] [address] [place] [phone] [id number] DAMIR ASHLEY Self - patient is the insured Medical (General) History Medical History History ICD Code Colon polyps- tubular adenomas removed i n 1997, [address],DM,CVA,Lung disease,renal dise ase HTN Hyperlipidemia Neg colonoscopy in 10/2013 Colonoscopy 2018 with 2 tubular adenomas removed Surgical History Surgery Date(Month/Year) Cataracts Anal polyps removed by Dr. Pablo in 2008 Pilonidal cyst
--- NOTE | 2025-05-23 09:32 | HO.ANESPROP2 ---
Documented by User: Do Jacobsen NP 05/23/25 09:33 HPI - Anesthesia Eval Consult details Narrative: 70 yr old male for colonoscopy [facility] Past Medical History Medical History PAC (premature atrial contraction) Palpitations Smoker Hyperlipidemia HTN (hypertension) GERD (gastroesophageal reflux disease) Family History Family history of problems with anesthesia: No Surgical History Surgical History History of rectal polypectomy Hx of bilateral cataract extraction S/P surgical removal of pilonidal cyst [place] teeth extracted Hx of colonoscopy History of Problems with Anesthesia: No Social History Social History Household Members: Spouse Are you a primary customer care coordinator to a significant other at home: No Do you presently have visiting nurse or other home services: No Patient Tobacco Use Status: Former Tobacco user Tobacco use type: Cigarette Cigarette Packs Per Day: 1 Cigarettes Per Day: 20.0 Years Smoked: 37 Substance Use Type Other:: >1 wk ago. Are you DNR?: No Advance Directives: No Advance Directives Information Provided: Yes Meds Allergies Allergy/AdvReac Type Severity Reaction Status Date / Time penicillin G (Penicillin G) Allergy Mild ITCH/SOB Verified 04/24/24 09:40 Home Medications ?Medication ?Instructions ?Recorded ?Confirmed ?Last Taken ?Type amlodipine 10 mg tablet 1 tab PO DAILY 09/25/21 05/25/25 Unknown History aspirin 81 mg tablet,delayed 81 mg PO DAILY 09/25/21 05/25/25 Unknown History release atorvastatin 20 mg tablet 1 tab PO DAILY 09/25/21 05/25/25 Unknown History hydrochlorothiazide 25 mg tablet 1 tab PO DAILY 09/25/21 05/25/25 Unknown History cholecalciferol (vitamin D3) 25 25 mcg PO DAILY 04/19/24 05/25/25 Unknown History mcg (1,000 unit) capsule (Vitamin D3) cetirizine 10 mg tablet (Zyrtec) 10 mg PO DAILY 05/23/25 05/25/25 Unknown History Assessment and Plan Final Anesthetic Review Family History of Problems with Anesthesia: No History of Problems with Anesthesia: No Documented by User: Kye Sales MD 05/25/25 11:24 [facility] Past Medical History Medical History PAC (premature atrial contraction) Palpitations Smoker Hyperlipidemia HTN (hypertension) GERD (gastroesophageal reflux disease) Functional capacity: independent ambulation Surgical History Surgical History History of rectal polypectomy Hx of bilateral cataract extraction S/P surgical removal of pilonidal cyst [place] teeth extracted Hx of colonoscopy Social History Social History Household Members: Spouse Are you a primary customer care coordinator to a significant other at home: No Do you presently have visiting nurse or other home services: No Patient Tobacco Use Status: Former Tobacco user Tobacco use type: Cigarette Cigarette Packs Per Day: 1 Cigarettes Per Day: 20.0 Years Smoked: 37 Substance Use Type Other:: >1 wk ago. Are you DNR?: No Advance Directives: No Advance Directives Information Provided: Yes Meds Allergies Allergy/AdvReac Type Severity Reaction Status Date / Time penicillin G (Penicillin G) Allergy Mild ITCH/SOB Verified 04/24/24 09:40 Home Medications ?Medication ?Instructions ?Recorded ?Confirmed ?Last Taken ?Type amlodipine 10 mg tablet 1 tab PO DAILY 09/25/21 05/25/25 Unknown History aspirin 81 mg tablet,delayed 81 mg PO DAILY 09/25/21 05/25/25 Unknown History release atorvastatin 20 mg tablet 1 tab PO DAILY 09/25/21 05/25/25 Unknown History hydrochlorothiazide 25 mg tablet 1 tab PO DAILY 09/25/21 05/25/25 Unknown History cholecalciferol (vitamin D3) 25 25 mcg PO DAILY 04/19/24 05/25/25 Unknown History mcg (1,000 unit) capsule (Vitamin D3) cetirizine 10 mg tablet (Zyrtec) 10 mg PO DAILY 05/23/25 05/25/25 Unknown History Exam Exam Date and Time: 05/25/2025 Airway Mallampati Class: II TM Dist: >3cm Neck ROM: Full Loose/Missing/Broken Teeth: No Heart: normal Lungs: normal Other: normal Assessment and Plan Assessment Anesthesia Assessment: Anesthesia Plan Discussed Final Anesthetic Review NPO: Yes ASA Class: II Final Preanesthetic Review: No Changes in Pt Med Stat, Meds/Allgs Chart Reviewed, Consent Obtained/Reviewed and Anes Risks/Benef Reviewed Patient Risk: Low Procedure Risk: Low Anesthetic Plan Anesthetic Plan: MAC: Disposition: Standard PACU
[2025-05-23 09:52] VITALS: BMI 31.0
[2025-05-25 09:03] VITALS: BMI 31.8
[2025-05-25 09:15] VITALS: BP 141/85; PULSE 101; RESP 21; TEMP 37.2; O2SAT 97
[2025-05-25] MEDS: Lactated Ringers 1,000 ML 100 ML IVCONT (09:37)
[2025-05-25 11:52] VITALS: BP 132/85; PULSE 75; RESP 16; TEMP 36.2; O2SAT 98
--- NOTE | 2025-05-25 11:53 | P.BOP_ITS ---
Brief Operative Note Date of Service: 05/25/25 Pre-op diagnosis: Screening Post-op diagnosis: other (Colon polyp) Procedure: Colonoscopy to the cecum with bx/removal of polyp Surgeon: Osmany Yarbrough MD Anesthesia: MAC Was an [employer] Equipment [employer] used for this Procedure?: No Estimated blood loss (mL): 2.0 Pathology: other (A. Polyp at 40cm) Condition: stable Disposition: PACU
[2025-05-25 12:07] VITALS: BP 121/85; PULSE 83; RESP 25; O2SAT 98
[2025-05-25 12:15] VITALS: BP 127/82; PULSE 79; RESP 16; TEMP 36.2; O2SAT 98
--- NOTE | 2025-05-25 22:01 | OP_ITS ---
DATE OF SERVICE: 05/25/2025 SURGEON: Osmany Yarbrough MD INDICATIONS: The patient presents for evaluation of colorectal cancer screening, personal history of tubular adenoma of the colon, family history of colon cancer. Full consent has been obtained from him for this, including risks of bleeding and perforation. PREOPERATIVE DIAGNOSIS: POSTOPERATIVE DIAGNOSIS: PROCEDURE PERFORMED: Colonoscopy to the cecum with biopsy and removal of polyp. ESTIMATED BLOOD LOSS: COMPLICATIONS: ANESTHESIA: Medication used, monitored anesthesia care. ASSISTANTS: SPECIMENS: PREOPERATIVE DIAGNOSES: Colorectal cancer screening, personal history of tubular adenomas, family history of colon cancer. POSTOPERATIVE DIAGNOSES: Colorectal cancer screening, personal history of tubular adenomas, family history of colon cancer, small colon polyp, diverticulosis, and internal hemorrhoids. DESCRIPTION OF PROCEDURE: The patient was placed in the left lateral decubitus position. The digital rectal exam revealed no abnormalities. The Olympus video pediatric colonoscope was entered into the rectum and advanced easily to the cecum. Once in the cecum, I did identify normal-appearing cecal pouch with appendiceal orifice and a normal-appearing ileocecal valve. The entire cecum and ileocecal valve appeared normal. There was transillumination of light deep in the right lower quadrant. The scope was slowly withdrawn assessing all mucosal surfaces carefully. Preparation was excellent, although did require a lot of irrigation and suctioning. At 40 cm was a flat, less than 5 mm polyp, which was biopsied and completely removed with a cold biopsy forceps. I did not visualize any other polyps, colitis, nor angiodysplasia. There was a mild amount of sigmoid diverticulosis. In the rectum, scope was retroflexed visualizing internal hemorrhoids, but no other pathology. The rectal mucosa appeared normal. The scope was straightened and withdrawn from the patient. He tolerated the procedure well and was returned to the recovery area in stable condition. IMPRESSION: 1. Small colon polyp. 2. Diverticulosis. 3. Internal hemorrhoids. PLAN: The results of the pathology will be checked. I would recommend a repeat colonoscopy in 5 years for further surveillance. He was advised not to use any aspirin nor NSAIDs for 1 week. MD TASHI Munson/MARITZAL / [id number]
== END 2025-05-25 12:39 | disposition home or self-care (01) ==
PROVIDERS: PCP Internal Medicine; Visit Provider Internal Medicine
PROC: 0DJD8ZZ Inspection of Lower Intestinal Tract, Via Natural or Artificial Opening Endoscopic (ICD-10-PCS; CPT 45378; principal; 2025-05-25 10:10)
DX: Z12.11 Encounter for screening for malignant neoplasm of colon (principal); Z86.0101 Personal history of adenomatous and serrated colon polyps; Z83.710 Family history of adenomatous and serrated polyps; Z80.0 Family history of malignant neoplasm of digestive organs; K57.30 Diverticulosis of large intestine without perforation or abscess without bleeding; D12.5 Benign neoplasm of sigmoid colon
CPT/HCPCS: 45380; 88305; J2704; J3010